=== PATIENT | female | born 1985 | race Caucasian/White ===

== ENCOUNTER 2020-06-11 10:51 | Emergency (ER) | payer OTHER ==
[2020-06-11 11:15] VITALS: BP 124/75; PULSE 87; TEMP 98.1; BMI 37.6
[2020-06-11] MEDS ORDERED: FAMOTIDINE 20 MG TABLET PO ONE (11:20)
[2020-06-11] MEDS ORDERED: DEXAMETHASONE SOD PHOSPHATE 10 MG/1 ML VIAL IM ONE (11:20)
[2020-06-11] MEDS ORDERED: DEXAMETHASONE SOD PHOSPHATE 10 MG/1 ML VIAL ONE (11:22)
[2020-06-11] MEDS ORDERED: FAMOTIDINE 20 MG TABLET ONE (11:22)
== END 2020-06-11 12:30 | disposition home or self-care (01) ==
LOC: JERFT 10:51
PROC: 3E023NZ Introduction of Analgesics, Hypnotics, Sedatives into Muscle, Percutaneous Approach (ICD-10-PCS; principal; 2020-06-11)
PROC: 3E023GC Introduction of Other Therapeutic Substance into Muscle, Percutaneous Approach (ICD-10-PCS; 2020-06-11)
DX: L27.2 Dermatitis due to ingested food (principal)
CPT/HCPCS: 99284-25; J1100